=== PATIENT | female | born 1975 | race Caucasian/White ===

== ENCOUNTER 2018-06-26 07:43 | Inpatient (IN) | payer OTHER ==
[~2018-06-26] VITALS: Ht 160 cm; Wt 93.9 kg
[2018-06-26] MEDS ORDERED: COZAAR100 MG (08:08)
== END 2018-07-03 16:40 | DRG 433 ==
LOC: ER 07:43 → SEC-K 18:36 → MEDJ 18:36
PROC: 4A033R1 Measurement of Arterial Saturation, Peripheral, Percutaneous Approach (ICD-10-PCS; 2018-06-26)
PROC: 3E0F7GC Introduction of Other Therapeutic Substance into Respiratory Tract, Via Natural or Artificial Opening (ICD-10-PCS; 2018-06-26)
PROC: BW40ZZZ Ultrasonography of Abdomen (ICD-10-PCS; 2018-06-26)
PROC: BF37ZZZ Magnetic Resonance Imaging (MRI) of Pancreas (ICD-10-PCS; 2018-06-26)
PROC: 30233N1 Transfusion of Nonautologous Red Blood Cells into Peripheral Vein, Percutaneous Approach (ICD-10-PCS; principal; 2018-06-29)
DX: K70.10 Alcoholic hepatitis without ascites (principal); J45.42 Moderate persistent asthma with status asthmaticus; I16.9 Hypertensive crisis, unspecified; E87.1 Hypo-osmolality and hyponatremia; K29.00 Acute gastritis without bleeding; E87.6 Hypokalemia; D52.8 Other folate deficiency anemias; K70.0 Alcoholic fatty liver; E11.9 Type 2 diabetes mellitus without complications; M70.21 Olecranon bursitis, right elbow; E80.6 Other disorders of bilirubin metabolism; F10.20 Alcohol dependence, uncomplicated; I10 Essential (primary) hypertension

== ENCOUNTER → 2018-08-20 | Emergency (ER) | payer OTHER ==
[~2018-08-20] VITALS: Ht 160 cm; Wt 84.4 kg
[~2018-08-20] MED LIST: COZAAR100 MG
== END | disposition home or self-care (01) ==
LOC: ER 18:40
DX: F10.20 Alcohol dependence, uncomplicated (principal)

== ENCOUNTER 2018-11-21 08:00 | Emergency (ER) | payer OTHER ==
[~2018-11-21] VITALS: Ht 160 cm; Wt 86.6 kg
[2018-11-21] MEDS ORDERED: CLONAZEPAM0.5 MG PO (08:09)
[2018-11-21] MEDS ORDERED: WELLBUTRIN XL300 MG PO (08:10)
[2018-11-21] MEDS ORDERED: CHLORDIAZEPOXID25 MG PO (17:58)
[2018-11-21] MEDS ORDERED: ZOFRAN ODT4 MG SL (17:58)
== END 2018-11-21 18:22 | disposition home or self-care (01) ==
LOC: ER 08:00
DX: R11.11 Vomiting without nausea (principal); K29.70 Gastritis, unspecified, without bleeding; F10.20 Alcohol dependence, uncomplicated; T51.0X1A Toxic effect of ethanol, accidental (unintentional), initial encounter